=== PATIENT | male | born 1985 | race Two or more races ===

== ENCOUNTER 2022-01-19 17:44 | Emergency (ER) | payer OTHER ==
[~2022-01-19] VITALS: Ht 177.8 cm; Wt 122.5 kg
[2022-01-19] MEDS ORDERED: QUET25TA3 (18:14)
[2022-01-19] MEDS ORDERED: LITHIUM (18:14)
[2022-01-19 18:39] LABS: HEMATOCRIT 43.2 % (36.7-47.1); MEAN CORPUSCULAR HEMOGLOBIN 28.8 uug (23.8-33.4); PLATELET COUNT (AUTO) 319 K/uL (152-348)
[2022-01-19 18:49] LABS: CREATININE 0.7 mg/dL (0.6-1.3); POTASSIUM 3.2 mmol/L (3.5-5.1)
[2022-01-19] MEDS ORDERED: IV NORMAL SALINE 1000 ML BAG IV ONE (19:00)
--- NOTE | 2022-01-19 19:00 | NUR ---
Received report from RYAN Rios. JEFF at this time.
--- NOTE | 2022-01-19 19:56 | NUR ---
urine collected sent to lab
[2022-01-19 20:01] LABS: *BILIRUBIN,URIN 1+ (NEGATIVE); *BLOOD, URINE 3+ (NEGATIVE); *CLARITY,URINE CLOUDY (CLEAR); *COLOR,URINE YELLOW (YELLOW); *KETONES,URINE TRACE (NEGATIVE); LEUKOCYTE ESTERASE ,URINE 1+ (NEGATIVE); NITRITE, URINE POSITIVE (NEGATIVE); PH,URINE 5.5 (5.0-8.0); UGLUCOSE NEGATIVE (NEGATIVE)
[2022-01-19] MEDS ORDERED: POTASSIUM CHLORIDE 20 MEQ TAB.PRT.SR ONE (20:11)
[2022-01-19] MEDS ORDERED: POTASSIUM CHLORIDE 20 MEQ TAB.PRT.SR PO ONE (20:15)
[2022-01-19] MEDS ORDERED: CEFTRIAXONE /D5W 50ML IVPB **ER PYXIS IV ONE (20:58)
[2022-01-19] MEDS ORDERED: NITR100C11 PO (20:59)
[2022-01-19] MEDS ORDERED: CEFTRIAXONE 1 G in IV DEXTROSE 5% 50 ML IV ONE (21:00)
--- NOTE | 2022-01-19 21:06 | NUR ---
Call [facility] for ride back to his facility. Will be picked up within an hour per Ga.
[2022-01-19 21:39] LABS: RBC,URINE TNTC /HPF (0-3)
[2022-01-19 21:40] LABS: BACTERIA,URINE MODERATE /HPF (NONE SEEN); SQUAMOUS EPITHELIAL CELL,UR FEW /HPF (NONE SEEN); WBC,URINE 20-50 /HPF (0-3)
--- NOTE | 2022-01-19 22:57 | NUR ---
picked up by [facility] Prof. [email or web address]
[2022-01-19 22:58] VITALS: BP 122/80
== END 2022-01-19 22:59 ==
LOC: ER 17:59
DX: N39.0 Urinary tract infection, site not specified (principal); E87.6 Hypokalemia; G35 Multiple sclerosis; Z87.440 Personal history of urinary (tract) infections
CPT/HCPCS: 99284; 96374; 96361; 80048; 81001; 85025; 36415; 51702; 87040; J0696; J7040; A4663